=== PATIENT | male | born 1980 | race Caucasian/White ===

== ENCOUNTER → 2016-12-14 | Outpatient (CLI) | payer OTHER ==
[~2016-12-14] MED LIST: HYDR-5688 PO; LISI-787 PO
--- NOTE | 2016-12-15 04:51 | SPLIT NIGHT TECHNICIAN REPORT ---
[facility] Split Night Polysomnogram - [employer] Report Study date: 12/14/2016 Referring Physician: Meghan ELY M.D. Name: MADELIN OCTAVIANO BAUTISTA [employer]: VELASQUEZ Pastrana. Date of : 1980 Height: 36 years, Height 5' 10" Sex: Male Weight: 351 lbs Age: 36 Neck Circum: 19 inches BMI: Medications: 50.36 LEXAPRO 10 MG, LISNIPRIL-HYDROCHLOROTHIAZIDE 20-12.5 MG Patient History PATIENT HAD A SLEEP STUDY DONE IN 2012 AND WAS POSITIVE FOR SUHAS WITH AN AHI 5.3/HR. HE WORE CPAP FOR 18 MONTHS BUT THEN QUIT. HE IS HERE TODAY FOR AN EVALUATION OF SUHAS. ESS = 8 RM 8 Parameters Monitored NPSG: E1-M2, E2-M1, Fp1-M2, Fp2-M1, F3-M2, F4-M2, F4-M1, C3-M2, C4-M2, C4-M1, O1-M2, O2-M2, O2-M1, T3-M2, T4-M1, P3-M2, P4-M1, CHIN1, CHIN2, HR, EKG, Legs, PFLOW, SNOR, FLOW, CFLOW, Tidal Volume, THOR, ABDO, SpO2, PLTH, CPRESS, ETCO2 Wave, ETCO2, pH SLEEP SUMMARY DATA DIAGNOSTIC TREATMENT Lights Out: 9:56:05 PM 12:42:35 AM Lights On: 12:33:35 AM 4:41:35 AM Total Recording Time (TRT): 158.0 min. 239.0 min. Total Sleep Time (TST): 127.0 min. 193.0 min. NREM Time: 106.5 min. 152.0 min. REM Time: 20.5 min. 41.0 min. Sleep Period Time (SPT): 142.0 min. 204.0 min. Sleep Efficiency (SE): 81 % 81 % Sleep Latency: 15.5 min. 27.0 min. Arousal Index: 11.8 2.5 PAP Treatment Levels: 4, 8, 9 * Optimal Pressure(s) SLEEP STAGING DATA DIAGNOSTIC TREATMENT Duration (min) TST % Duration (min) TST % Stage Wake: 30.5 min. -- 46.0 min. -- WASO: 15.0 min. -- 11.0 min. -- NREM: 106.5 min. 84 % 152.0 min. 79 % Stage N1: 18.0 min. 14 % 5.5 min. 3 % Stage N2: 58.5 min. 46 % 63.5 min. 33 % Stage N3: 30.0 min. 24 % 83.0 min. 43 % REM: 20.5 min. 16 % 41.0 min. 21 % POSITIONAL DATA Event Count Index Event Count Index Supine: 1 19.9 2 1.4 Supine NREM: 1 19.9 0 0.0 Supine REM: N/A N/A 2 3 Non-Supine: 55 26.6 0 0.0 Non-Supine NREM: 24 13.9 0 0.0 Non-Supine REM: 31 90.7 N/A N/A AROUSAL SUMMARY DATA: Event Count Index Event Count Index Apnea Arousals: 1 0.9 0 0.0 Hypopnea Arousals: 4 1.9 0 0.0 Snore Arousals: 4 1.9 0 0.0 PLM Arousals: 1 0.5 2 0.6 Non-Specific Arousals: 16 7.6 4 1.2 Total Arousals: 25 11.8 8 2.5 MYOCLONUS (PLM) Event Count Index Event Count Index PLM: 18 8.5 5 1.6 PLM AROUSAL: 1 0.5 2 0.6 PLM W/O AROUSAL 18 8.5 3 0.9 PLM W/RESP EVENT 1 0.0 0 0.0 MYOCLONUS (PLM) Event Count Index Event Count Index LM: 2 10.9 15 4.7 LM AROUSAL: 2 0.9 2 0.6 LM W/O AROUSAL LM W/RESP EVENT LM NON SPECIFIC 35 16.5 16 5.0 HEART RATE DATA DIAGNOSTIC TREATMENT Sleep (bpm): 75 73 REM (bpm): 73 88 NREM (bpm): 88 89 Tachycardia Count: 0 0 Tachycardia Duration: 0.00 0 Bradycardia Count: 0 0 Bradycardia Duration: 0.00 0 DIAGNOSTIC PORTION TREATMENT PORTION RESPIRATORY DATA Event Count Index Event Count Index AHI: -- 26.5 -- 0.6 RDI: -- 26.5 -- 1 Obstructive Apnea: 1 0.5 0 0.0 Central Apnea: 1 0.5 0 0.0 Mixed Apnea: 0 0.0 0 0.0 Hypopnea: 54 25.5 2 0.6 RERA: 0 0.0 0 0.0 Total Apneas: 2 0.9 0 0.0 RESPIRATORY DATA REM NREM SLEEP REM NREM SLEEP Supine Position: Obstructive Apneas: N/A 0 0 0 0 0 Central Apneas: N/A 0 0 0 0 0 Mixed Apneas: N/A 0 0 0 0 0 Hypopneas: N/A 1 1 2 0 2 RERA N/A 0 0 0 0 0 Total Supine Events: N/A 1 1 2 0 2 Supine AHI: N/A 19.9 19.9 3 0.0 1.4 Supine RDI: N/A 19.9 19.9 2.9 0.0 1.4 REM NREM SLEEP REM NREM SLEEP Non-Supine Position: Obstructive Apneas: 1 0 1 N/A 0 0 Central Apneas: 0 1 1 N/A 0 0 Mixed Apneas: 0 0 0 N/A 0 0 Hypopneas: 30 23 53 N/A 0 0 RERA 0 0 0 N/A 0 0 Total Supine Events: 31 24 55 N/A 0 0 Supine AHI: 90.7 13.9 26.6 N/A 0.0 0.0 Supine RDI: 90.7 13.9 26.6 N/A 0.0 0.0 OXYGEN DESTAURATION DATA: Event Count Index Event Count Index REM Desaturations: 40 117.1 2 2.9 NREM Desaturations: 31 17.5 0 0.0 SNORE DATA DIAGNOSTIC TREATMENT Snore Time: 24.0 1:09:35 AM Snore TST%: 17 10 Snore Arousal Count: 4 0 Snore Arousal Index: 1.9 0.0 Desaturation Event Summary: Minimum %SpO2 Event Count Mean/Min/Max Duration(sec.) Desaturation Index % Time In Bed > 90 31 19.0 / 5.8 / 51.8 22.4 21.3 86 - 90 29 23.6 / 7.0 / 55.5 6.6 67.7 81 - 85 13 18.5 / 11.3 / 45.5 33.4 6.0 76 - 80 14 16.2 / 5.5 / 45.5 186.0 1.2 71 - 75 20 10.2 / 5.5 / 22.2 152.9 2.0 66 - 70 10 8.2 / 5.8 / 13.0 120.2 1.3 61 - 65 2 7.5 / 7.0 / 8.0 61.5 0.5 56 - 60 0 N/A 0.0 0.0 51 - 55 0 N/A 0.0 0.0 < 50 0 N/A 0.0 0.0 OXYGEN SATURATION DATA DIAGNOSTIC TREATMENT SpO2 Mean Sleep: 85 % 88 % SpO2 Mean REM: 73 % 88 % SpO2 Mean NREM: 88 % 89 % SpO2 Minimum Sleep: 60 % 83 % SpO2 Minimum REM: 60 % 84 % SpO2 Minimum NREM: 71 % 83 % Time Below 90% (TST): 109.8 139.7 Time Below 88% (TST): 77.9 50.5 Total REM NREM Awake <50% 0.0 min. 0.0 min. 0.0 min. 0.0 min. 51 - 60% 0.1 min. 0.1 min. 0.0 min. 0.0 min. 61 - 70% 6.9 min. 6.9 min. 0.0 min. 0.0 min. 71 - 80% 12.4 min. 11.2 min. 1.1 min. 0.0 min. 81 - 90% 287.5 min. 43.1 min. 224.6 min. 19.9 min. 91 - 100% 83.0 min. 0.1 min. 32.6 min. 50.3 min. Average 88 83 88 91 Minimum SpO2 60 60 71 83 Desaturation Event Index 13.9 41.0 7.2 14.9 # Desat. Events below 89% 83 42 30 11 Time(%) with Saturation below 89% 52.9 12.8 38.3 1.8 Time(min.) with Saturation below 89% 206.4 49.9 149.4 7.2 Recording [employer] Comments: Mr. Lacey slept in the right, left and supine positions. No cardiac arrhythmia noted. Leg movements noted. No bruxism noted. Snoring was noted and scored as a 4 on a scale of 1 through 5. (0=no snoring, 5=snoring loud enough to be heard through a closed door or down the hicks way) At 12:33 am, Mr. Lacey has met specific Split-Night criteria during the diagnostic portion of this study. CPAP was initiated at +4 CMH2O and up-titrated to an optimal level of +9CMH2O, which nearly eliminated all respiratory events and snoring. At 3:45 am I initiated supplemental oxygen at 1l/min due to the patient's oxygen level being at 88% or lower for at least 5 minutes at an optimal pressure. I increased supplemental oxygen to 2l/min at 4:25 am. A Fraz[employer] Eson nasal mask size medium was used during titration Mr. Lacey awoke to use the restroom 1 time during the night. Mr. Lacey stated I slept as well as I do when I am in my own bed. The final report will be interpreted and signed by a sleep physician. The completed physician report will then be placed in the patient medical record. Therapy Event: Therapy (cm H20) 0 4 8 9 Total Time at Pressure (min.) 157.5 11.6 45.1 182.2 TST at Pressure (min.) 127.0 0.0 21.8 171.2 # Periods 1 1 1 1 Sleep Onset (min.) 15.5 N/A 15.4 0.0 REM Onset (min.) 135.0 N/A N/A 36.2 Sleep Efficiency % 80 0 48 94 Wakefulness (%) 19.4 100.0 51.8 6.0 Wakefulness (min.) 30.5 11.6 23.4 11.0 NREM 1 (%) 11.4 0.0 5.5 1.6 NREM 1 (min.) 18.0 0.0 2.5 3.0 NREM 2 (%) 37.1 0.0 41.0 24.7 NREM 2 (min.) 58.5 0.0 18.5 45.0 NREM 3 (%) 19.0 0.0 1.7 45.1 NREM 3 (min.) 30.0 0.0 0.8 82.2 REM (%) 13.0 0.0 0.0 22.5 REM (min.) 20.5 0.0 0.0 41.0 # Arousals 25 N/A 2 6 Arousal Index 11.8 N/A 5.5 2.1 # Snore 974 N/A 90 591 Snore Index 460.2 N/A 248.2 207.1 AHI 26.5 N/A 0.0 0.7 AHI Supine 19.9 N/A N/A 1.4 AHI Non-Supine 26.6 N/A 0.0 0.0 NREM AHI 14.1 N/A 0.0 0.0 REM AHI 90.7 N/A N/A 2.9 RDI 26.5 N/A 0.0 0.7 # Obstructive 1 N/A 0 0 # Central Ap 1 N/A 0 0 # Mixed 0 N/A 0 0 # Hypopneas 54 N/A 0 2 RERAS 0 N/A 0 0 Total Respiratory Events 56 N/A 0 2 Time Below SpO2 89.00% (min.) 98.4 0.0 18.0 82.8 Mean NREM SpO2 (%) 88 N/A 88 89 Mean REM SpO2 (%) 73 N/A N/A 88 Mean Sleep SpO2 (%) 85 N/A 88 89 Min NREM SpO2 (%) 71 N/A 86 83 Min REM SpO2 (%) 60 N/A N/A 84 Position Supine (min.) 3.0 0.0 0.0 84.9 Position Non-supine (min.) 124.0 0.0 21.8 86.3 LM Index Sleep 19.4 N/A 5.5 6.3 LM Index NREM 20.3 N/A 5.5 5.1 LM Index REM 14.6 N/A N/A 10.2 Mean Heart Rate (bpm) 75 N/A 75 73 Min Heart Rate (bpm) 61 N/A 67 62
--- NOTE | 2016-12-26 13:38 | POLYSOMNOGRAPH REPORT ---
REFERRING PERSON: Dr. Valdez Cuello. DIABETES EDUCATION COORDINATOR: Jeison Chin. Mr. Lacey is a 36-year-old morbidly obese male with mood disorder who had a sleep study performed in 2012 which showed an AHI of 5.3. He used a CPAP machine for about 18 months and then quit using it. He returns to the sleep lab to see if sleep apnea is still present. His Champion sleepiness scale score on the evening of this study is 8. BMI is 50.36. Following the technical and digital specifications of the [employer] (AASM) a standard diagnostic polysomnogram was performed monitoring EEG, EOG, EMG (chin and leg deviations), oxygen saturation, body position, digital video, respiratory effort and airflow. The sleep Stage and event scoring was based on the AASM Manual for the Scoring of Sleep and Associated Events 2007 edition. Apneas are defined as a drop in the peak thermal sensor excursion by >90% of baseline for at least 10 seconds. Hypopneas were scored using the 4% oxygen desaturation rule (4A-[employer]) and a decrease in the nasal pressure excursions by >30% of baseline for at least 10 seconds. Respiratory effort-related arousal (RERA's) is defined as a sequence of breaths lasting at least 10 seconds characterized by increasing respiratory effort or flattening of the nasal pressure waveform leading to an arousal from sleep when the sequence of breaths does not meet criteria for an apnea or hypopnea. Apnea Hypopnea index (AHI) is defined as the number of apneas and hypopneas occurring in an hour of sleep. Respiratory disturbance index (RDI) is defined as the number of apneas, hypopneas, and RERA's occurring in an hour of sleep. Mr. Lacey did in fact qualify for a split night sleep study. He was observed for 127 minutes of sleep time. During that time he had 14% N1 sleep, 46% N2 sleep, 24% N3 sleep and 16% of REM sleep. There were 25 cortical arousals from sleep. 16 of these arousals were nonspecific, 1 was due to periodic limb movements of sleep and the remainder were due to respiratory events. There were 18 periodic limb movements during observation, 1 of which resulted in arousal. Mean saturation during sleep was low at 85% desaturations with a respiratory event during REM to 60%. There was 1 obstructive apnea, 1 central apnea and no mixed apnea during observation. There were 54 hypopnea. Apnea-hypopnea index was 26.5. Therefore, at 12:30 a.m., this patient was started on CPAP therapy. Over the remainder of the night, this patient was titrated from a CPAP pressure of 4 to a CPAP pressure of 9 using a Frazier and Paykel Eson nasal mask in a medium size. On a pressure of 9, the patient was observed for 171.2 minutes of sleep time. Forty-one of these minutes were spent in supine REM sleep. AHI and RDI on this pressure were both 0.7. However, nocturnal hypoxemia persisted despite adequate treatment of sleep disordered breathing. Therefore, at 3:45 a.m., this patient was started on supplemental oxygen at 1 liter. At 4:25 a.m. this was increased to 2 liters. He remained on 2 liters for the remainder of the night. IMPRESSION AND PLAN: Successful split night sleep study in this patient with significant nocturnal hypoxemia as well as sleep apnea. I would recommend that he be started on CPAP at a pressure of 9 at home with 2 liters of supplemental oxygen. An overnight oximetry on these settings should be performed to ensure his hypoxemia resolves with 2 liters of oxygen and that he does not require additional. A download from his machine should be reviewed in 1 month both to check compliance as well as AHI and further pressure adjustments can occur at that time.
== END | disposition home or self-care (01) ==
LOC: C.NEUR 20:00
PROVIDERS: ATTEND Family Medicine
DX: G47.33 Obstructive sleep apnea (adult) (pediatric) (principal); R09.02 Hypoxemia

== ENCOUNTER 2017-04-01 23:28 | Emergency (ER) | payer OTHER ==
[~2017-04-01 23:28] MED LIST changes: -HYDR-5688 PO
[2017-04-01 23:33] VITALS: TEMP 36.7
[2017-04-02] MEDS ORDERED: XYLOCAINE 1%/SOD BICARB 20 ML VIAL INFIL ONE
[2017-04-02] MEDS ORDERED: DIPHTHERIA/TETANUS/PERTUSSIS 0.5 ML SYR/VIAL IM. ONE (00:15)
--- NOTE | 2017-04-02 00:50 | EMERGENCY ROOM VISIT NOTE ---
ED Visit Note First contact with patient: 23:35 CHIEF COMPLAINT: Finger laceration HISTORY OF PRESENT ILLNESS: This 37 yo patient presents to the emergency department with after cutting the left thumb finger. The bleeding has not stopped. Denies weakness or numbness of the finger. The patient has full range of motion of the fingers. The patient rates the pain as mild and 2/10. The patient denies any other injuries. The patient's tetanus shot is not up to date. Patient cut his thumb putting down a tent. REVIEW OF SYSTEMS: A 6 system review of systems was completed with positives and pertinent negatives listed in the HPI. ALLERGIES: none MEDICATIONS: reviewed PMH:Medical Problems: (1) Hypertension Status: Chronic (2) Left rib fracture Status: Resolved (3) Morbid Obesity Status: Chronic (4) Multiple fractures of ribs with delayed healing Status: Resolved (5) Rib pain Status: Resolved SOCIAL HISTORY: no drug use PHYSICAL EXAM: Vital Signs: Reviewed Nurse's notes, vital signs stable. GENERAL : white male, in no acute distress, well developed, well nourished. SKIN: There is a 3 cm long laceration on the distal aspect of the left first finger. The edges gape apart with traction. There is no foreign material in the wound and it looks clean. There is bleeding. No deep structures such as tendons, bones, or significant blood vessels are seen in the base of the wound. Extension and flexion of the finger is full and strong. Full range of motion of the wrist and other fingers. Capillary refill less than 2 seconds. Normal sensation to light and sharp touch. EMERGENCY DEPARTMENT COURSE: I examined the patient. Using sterile technique the wound was cleansed with Betadine. 2 ml of 1% buffered lidocaine was used to perform a digital block to anesthetize the patient. The area was sterilely draped. Once the patient was anesthetized, the wound was copiously irrigated under pressure with sterile saline. The wound was explored and there were no deep structures injured. The laceration was repaired using 5 simple interrupted 5-0 nylon sutures. The patient tolerated the procedure well. Hemostasis was achieved. The area was cleaned with sterile saline and dressed with bacitracin ointment and bandage. The patient was given a tetanus booster. The patient was discharged home in good condition. Differential diagnosis includes superficial ulceration, deep laceration, complex laceration, vascular injury, nerve injury and other etiologies were considered. DIAGNOSIS: Finger laceration, left thumb DISCHARGE INSTRUCTIONS & TREATMENT: Keep wound clean and dry. Do not allow any crusting or dried blood to accumulate on sutures. If this occurs, use a 1:1 solution of hydrogen peroxide/water on a Q-tip to clean the wound. Use an antibiotic ointment for 3-4 days, then let wound dry. Suture removal in 10-12 days. Return sooner for any signs of infection (increasing redness, swelling, drainage). Ice and elevate for swelling and pain. Ibuprofen 600 mg and Tylenol 500 mg every 6 hrs for pain. Keep covered when in sun until sutures removed then SPF 50 or higher for one year. Vitamin E oil if desired two weeks after suture removal for reduction of scar. Problem List Medical Problems: (1) Hypertension Status: Chronic (2) Left rib fracture Status: Resolved (3) Morbid Obesity Status: Chronic (4) Multiple fractures of ribs with delayed healing Status: Resolved (5) Rib pain Status: Resolved Current/Historical Medications Scheduled Lisinopril/Hctz (Zestoretic 20MG/12.5MG), 1 TAB PO DAILY Allergies Coded Allergies: No Known Allergies (Unverified , NONE, 04/02/17) Vital Signs Date Time Temp Pulse Resp B/P (MAP) Pulse Ox O2 Delivery O2 Flow Rate FiO2 04/01/17 23:33 36.7 84 18 168/99 95 Room Air Departure Information Referrals Malcolm Lopez M.D. (PCP) Patient Instructions [facility]
[2017-04-02 01:03] VITALS: BP 142/88; PULSE 82; O2SAT 96
== END 2017-04-02 01:00 | disposition home or self-care (01) ==
LOC: C.EDB 23:29 → C.EDC 04-02 01:00
DX: S61.012A Laceration without foreign body of left thumb without damage to nail, initial encounter (principal); W45.8XXA Other foreign body or object entering through skin, initial encounter; Z23 Encounter for immunization; I10 Essential (primary) hypertension; Z86.73 Personal history of transient ischemic attack (TIA), and cerebral infarction without residual deficits; Z79.899 Other long term (current) drug therapy

== ENCOUNTER 2023-07-23 23:30 | Observation (INO) ==
--- OUTSIDE RECORDS SUMMARY | 2023-07-23 23:34 | External Medical Summary | Summary of Care ---
Author Name Unknown Organization [facility] Address [address] [place] [address] Phone [phone] Care Team Providers Care [employer] Name Role Phone Luias STEWART MD, Lee Colón Primary Care Provider [phone] Reason for Visit * Reason Comments Toothache * Auth/Cert Specialty Diagnoses / Procedures Referred By Juan J husain Referred To Contact Referral ID Status Reason Start Date Expiration Date Visits Re quested Visits Authorized [id number] Encounter Details Date Type Department Care Team Description 05/24/2023 Emergency [facility] ([facility]) [address] [place] [address] Dental infection (Primary Dx); Hypertension, unspecified type Allergies No known active allergiesdocumented as of this encounter (statuses as of 05/25/2023) Medications Medication Sig Dispensed Refills Start Date End Date Status Lisinopril-hydroCH LOROthiazide 20-12.5 MG Oral TabletIndications: Essential hypertension with goal blood pressure less than 140/90 Take by mouth 1 Tablet in the morning. 90 Tablet 1 11/18/2021 Active ProAir HFA 108 (90 Base) MCG/ACT Inhalation Aerosol Solution Inhale by mouth 2 Puffs 4 times a day . 18 g 1 11/18/2021 Active Amoxicillin 500 MG Oral Capsule (Amoxil) Take 1 Capsule by mouth in the morning and 1 Capsule at noon and 1 Capsule before bedtime. Do all this for 7 days. 21 Capsule 0 05/24/2023 05/31/2023 Active amLODIPine Besylate 5 MG Oral Tablet (Norvasc) Take 2 Tablets by mouth in the morning. 30 Tablet 5 05/24/2023 Active oxyCODONE-Acetamin ophen 5-325 MG Oral Tablet (Percocet) Take 1 Tablet by mouth every 4 hours as needed for Pain, Severe. 6 Tablet 0 05/24/2023 Active amLODIPine Besylate 5 MG Oral Tablet (Norvasc) Take by mouth 1 Tablet in the morning. 30 Tablet 5 11/18/2021 05/24/2023 Discontinued (Refill) documented as of this encounter (statuses as of 05/25/2023) Active Problems Problem Noted Date Major depressive disorder, single episod e, mild 04/18/2018 Adult BMI 50.0-59.9 kg/sq m 01/21/2016 Overview: bmi= 50.51 01/21/16 History of rib fracture 01/21/2016 Hyperinsulinemia 01/21/2016 Tobacco use disorder 12/21/2015 Alcohol dependence in remission 10/08/19 14 TERMINATED MEDICATION USAGE AGREEMENT HYPOXEMIA - nocturnal 08/13/2010 Obstructive sleep apnea of adult 010 PHOTOALLERGIC RESPONSE 03/05/2007 HTN, goal below 140/90 documented as of this encounter (statuses as of 05/25/2023) Resolved Problems Problem Noted Date Resolved Date Controlled substance agreement signed 12/21/2015 12/21/2015 Adult body mass index 50.0-59.9 05/14/2010 05/11/2017 Overview: Per Obesity protocol #1 Obesity, morbid (more than 1 00 lbs over ideal weight or BMI > 40) 04/05/2010 05/14/2010 Overview: ICD-10 update of inactive term Chronic sinusitis 09/14/2004 12/21/2015 ACUTE URI NOS 09/14/2004 09/25/2008 Overview: Resolved per Benign Acute Dxs Protocol #3 DYSFUNCT EUSTACHIAN TUBE 09/14/2004 016 Chronic rhinitis 09/14/2004 12/21/2015 Tobacco use disorder 09/14/2004 12/21/2015 Cough 09/14/2004 12/21/2015 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/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 OBESITY, UNSPECIFIED 09/14/2004 12/21/2015 documented as of this encounter (statuses as of 05/25/2023) Immunizations Name Administration Dates Next Due Pneumococcal Polysaccharide PPV23 (Pneumovax) SEASONAL INFLUENZA, PF, 6 M & Above, IM , (FLULAVAL or FLUZONE) 06/17/2020 Seasonal Influenza, Quadrivalent, No Preserve, I M 04/22/2016 Seasonal Influenza, Split, IIV3, With Preserve, Inj 06/11/2010 TD, Preservative Free 07/30/2020 TDAP (age 11 and older)(Adacel) 03/05/2009 documented as of this encounter Social History Tobacco Use Types Packs/Day Years Used Date Smoking Tobacco: Every Day Cigarettes 1 22 Smokeless Tobacco: Never Alcohol Use Standard Drinks/Week Comments No 0 (1 standard drink = 0.6 oz pur e alcohol) Sex Assigned at Date Recorded Not on file Job Start Date Occupation Industry Not on file Not on file Not on file documented as of this encounter Last Filed Vital Signs Vital Sign Reading Time Taken Comments Blood Pressure 250/146 05/24/2023 10:10 PM EDT Pulse 90 05/24/2023 10:10 PM EDT Temperature 37.2 C (99 F) 05/24/2023 8:51 PM EDT Respiratory Rate 23 05/24/2023 10:1 0 PM EDT Oxygen Saturation 96% 05/24/2023 10: 10 PM EDT Inhaled Oxygen Concentration - - Weight 166.9 kg (367 lb 14.4 oz) 05/24/2023 8:51 PM EDT Height - - Body Mass Index 52.97 08/26/2020 9:01 AM EST documented in this encounter Discharge Instructions * Discharge Instructions* Jaden Lees PA-C - 05/24/2023 10:10 PM EDT Increase your amlodipine to 10mg daily. Take the antibiotic as prescribed for the full course. Continue taking pmif-pql-fijdrmt medicationsin scheduled manner, oxycodone may be used for pain not controlled with qsop-kxu-ojpwxjl medications. Follow up with your dentist. Report back to the ED with fevers, increased facial swelling, trouble swallowing, or any new concerns. documented in this encounter ED Notes * Meagan Zepeda, DO - 05/24/2023 10:32 PM EDT HISTORY OF PRESENT ILLNESS Haroon Lacey is a 43 year old male who presents to the ED for evaluation of Toothache. The patient was seen at 05/24/232153. Patient presents today with complaints of dental pain that has been ongoing. Reports it has gotten worse recently, he was seen by a dentist recently and was informed that he should have all of his lower teeth removed, the dentist informed him that they appeared infected, but reports they did not start him on any antibiotics. They were requesting 5000 dollars to have his teeth removed which she does not have. Minimal amount of facial swelling on the right side, but no trouble swallowing, no tongue swelling or swelling under the tongue, no fevers or chills. Noted to be significantly hypertensive, reports he does take some medications progress described byhis doctor, he is currently taking them, he is not followed up to have any dosage changes. Denying CP, SOB, headache, dizziness, lightheadedness, numbness or weakness Toothache The patient's allergies, past history, and medications were reviewed. PHYSICAL EXAM Initial Vitals (see all): BP 258/150 | Pulse 103 | Resp 22 | Temp 99 | O2 95 %, Room Air, None | Weight 166.88 kg | Height 177.5 cm | Initial Pain Assessment (see all): 8 (severe pain)/10, location: lower jaw pain ([facility] Adult Scale 0-10) Physical Exam Vitals and nursing note reviewed. Constitutional: Appearance: Normal appearance. He is not ill-appearing. HENT: Head: Normocephalic and atraumatic. Mouth/Throat: Mouth: Mucous membranes are moist. Pharynx: Oropharynx is clear. Comments: Poor dentition throughout the mouth, multiple teeth in the lower jaw tender. Cardiovascular: Rate and Rhythm: Normal rate and regular rhythm. Heart sounds: Normal heart sounds. Pulmonary: Effort: Pulmonary effort is normal. Breath sounds: Normal breath sounds. Neurological: General: No focal deficit present. Mental Status: He is alert and oriented to person, place, and time. Sensory: No sensory deficit. Motor: No weakness. PROCEDURES AND TREATMENTS ED Orders | ED Results MEDICAL DECISION MAKING Nursing notes and vital signs were reviewed. Differential Diagnoses Based on my history, physical exam, and evaluation, the differential includes, but is not limited, to the following diagnoses: Dental infection, small dental abscess, dental pain, poor dentition, uncontrolled hypertension, asymptomatic hypertension. 43-year-old male with poor dentition, multiple areas of tenderness in the mouth, no abscess that would be drainable was noted. Minimal swelling noted to both sides of his lower jaw. His dentist told him that they were infected, but he has not been started on any antibiotics. No evidence of deep space infection of the face or neck. Will start him on antibiotics, and given ashort course of oxycodone for pain. Patient is significantly hypertensive but asymptomatic at this time. Previous office visit he was around 200 systolic. He has been taking his prescribed medications, but has not followed up for increased dosing. Will give him an extra dose of his amlodipine and have him start taking 10 mg instead of 5. I educated him on the dangers of uncontrolled hypertension of the need for follow-up. He voiced understanding, and was discharged. Risk Prescription drug management. Clinical Impressions Dental infection Hypertension, unspecified type Disposition Discharged. The patient's condition at disposition was: stable. Discharge Medications Disp Refills Start End Amoxicillin 500 MG Oral Capsule (Amoxil) 21 Capsule 0 05/24/2023 05/31/2023 Sig - Route: Take 1 Capsule by mouth in the morning and 1 Capsule at noon and 1 Capsule before bedtime. Do all this for 7 days. - Oral Class: ePrescribing Renewals Renewal requests to authorizing provider (Jaden Lees PA-C) <b>prohibited</b> amLODIPine Besylate 5 MG Oral Tablet (Norvasc) 30 Tablet 5 05/24/2023 Sig - Route: Take 2 Tablets by mouth in the morning. - Oral Class: ePrescribing Renewals Renewal requests to authorizing provider (Jaden Lees PA-C) <b>prohibited</b> oxyCODONE-Acetaminophen 5-325 MG Oral Tablet (Percocet) 6 Tablet 0 05/24/2023 Sig - Route: Take 1 Tablet by mouth every 4 hours as needed for Pain, Severe. - Oral Class: Site Administration Earliest Fill Date: 05/24/2023 Renewals Renewal requests to authorizing provider (Jaden Lees PA-C) <b>prohibited</b> I have personally dispensed to go medications to the patient for home use. These to go mediations are listed above with a class of site administration. These medications were labeled with the patient's name and instructions for use. MEAGAN ZEPEDA was the attending physician who supervised the care of this patient. Jaden Lees PA-C ATTENDING ATTESTATION I was readily available and reviewed care of this patient. I was available for immediate iunm-wt-[id number] consultation and assistance. I have reviewed the care of the patient with the provider listed above. Meagan Zepeda DO * Yancy Peterson RN - 05/24/2023 8:50 PM EDT Reports he was at the oral surgeon yesterday and told he had a bad infection but they would not pull his teeth without 5000 dollar down payment. Reports his whole bottom jaw hurts. documented in this encounter Miscellaneous Notes * ED Energy Auditor Note - Wild Johnson RN - 05/24/2023 10:20 PM EDT Reviewed pts dc instructions with him at the bedside. Zee BUTLER did provide pt with TO GO percocet - 6 tablets. Discussed new orders for abx sent to the pharm for pickup. Pt did verbalize understanding to all topics covered prior to dc. * Pt Handout (on AVS) - Jaden Lees PA-C - 05/24/2023 10:04 PM EDT [address] Discharge Instructions for High Blood Pressure (Hypertension) You have been diagnosed with high blood pressure. This is known as hypertension. This means the force of blood against your artery nieto is too strong. It means your heart is working hard to move blood. High blood pressure usually has no symptoms. But over time, it can cause serious health problems. High blood pressure raises your risk for these problems: Heart attack Stroke Heart disease Heart failure Kidney disease Vision loss With help from your healthcare provider, you can manage your blood pressure and protect your health. Blood pressure measurements are given as 2 numbers. Systolic blood pressure is the upper number. This is the pressure when the heart contracts or pumps. Diastolic blood pressure is the lower number. This is the pressure when the heart relaxes between beats. Blood pressure is grouped like this: Normal blood pressure. This is systolic of less than 120 and diastolic of less than 80 (120/80) at rest Elevated blood pressure. This is systolic of 120 to 129 and diastolic less than 80 at rest Stage 1 high blood pressure. This is systolic is 130 to 139 or diastolic between 80 to 89 at rest Stage 2 high blood pressure. This is when systolic is 140 or higher or the diastolic is 90 or higher at rest Taking medicine Learn to measure your own blood pressure. Keep a record of your results. Ask your healthcare provider what numbers mean that you need medical care. Take your blood pressure medicine exactly as directed. Don?t skip doses. Missing doses can causeyour blood pressure to get out of control. Ask your healthcare provider what to do if you miss a dose. Don't take medicines that contain heart stimulants. This includes mpoz-yzl-gwyrbmn medicines. Check for warnings about high blood pressure on the label. Ask the pharmacist before buying a medicineyou haven't used before. Check with your healthcare provider before taking a decongestant. This includes medicines with pseudoephedrine or phenylephrine on the label. Ask the pharmacist if you are not sure. These can makehigh blood pressure worse. If you take medicine to have sex, talk to your healthcare provider. Taking these medicines with a type of blood pressure medicine called nitrates can be dangerous. This can drop your blood pressure too low. Lifestyle changes Keep a healthy weight. Get help to lose any extra pounds. Meeting with a dietitian can help you make diet changes to help with weight loss. Cut back on salt. To do this: o Limit canned, dried, packaged, and fast foods. o Don?t add salt to your food at the table. o Season foods with herbs instead of salt when you cook. o Ask for no added salt when you eat out. o Have no more than 1,500 mg a day of sodium. You can make a positive change by cutting back to even 2,300 mg of sodium a day. Read all food labels to see how much sodium they have. Follow the DASH eating plan. DASH stands for Dietary Approaches to Stop Hypertension. This plan advises a way to eat for healthy blood pressure. The diet includes vegetables, fruits, whole grains,and other healthy foods. Eat food rich in potassium. Begin an exercise program. Talk with your healthcare provider before you get started. Work up toaerobic exercise 3 to 4 times a week for an average of 40 minutes at a time to lower blood pressure. Even simple activities can help blood pressure. These include walking or gardening. If you smoke, work to stop. Enroll in a stop-smoking program. This will improve your chance of success. Ask your healthcare provider about programs and medicines to help you stop smoking. Limit drinks with caffeine to 2 per day. This includes such as coffee, black or green tea, and cola. Never take stimulants such as amphetamines or cocaine. These drugs can be deadly for a person with high blood pressure. Work to lessen your stress. You can learn ways to manage stress. Limit how much alcohol you drink. This means no more than 1 drink a day for women and 2 drinks aday for men. Follow-up care Make a follow-up appointment as directed. When to call your healthcare provider Call your healthcare provider right away if you have any of these: Moderate headache Extreme drowsiness Dizziness or fainting Pulsating or rushing sound in your ears Unexplained nosebleed Blood pressure measured at home that is higher than 180/110 or as directed by your healthcare provider Call 911 Call 911 right away if you have any of these symptoms: Chest pain or shortness of breath Severe headache Weakness, tingling, or numbness of your face, arms, or legs (especially on 1 side of the body) Change in vision Confusion, trouble speaking, or trouble understanding speech Last Reviewed Date: 06/07/202119999786-7565 [employer]. All rights reserved. This information is not intended as a substitute for professional medical care. Always follow your healthcare professional's instructions. * Pt Handout (on AVS) - Jaden Lees PA-C - 05/24/2023 10:04 PM EDT Images from the original note were not included. [id number] Dental Abscess An abscess is a sac of fluid (pus). A dental abscess forms when a tooth or the tissue around it becomes infected with bacteria. The bacteria can enter through a cavity or a crack in a tooth. It can also infect the gum tissue or bone around a tooth. An untreated abscess can cause the loss of the tooth. It can even spread to other parts of the body and become life-threatening. Symptoms of a dental abscess Symptoms include: Toothache, often severe Tooth pain with hot, cold, or pressure Red gums Pain in the gums, cheek, or jaw Bad breath or bitter taste in the mouth Trouble swallowing or opening the mouth Fever Swollen or enlarged neck glands Diagnosing a dental abscess The dentist will ask about your symptoms and check your teeth and gums. You will be told if you need any tests, such as dental X-rays. Treating a dental abscess Treatments for a dental abscess may include: Antibiotic medicines. These treat the underlying infection. Pain relievers. These help you feel more comfortable. Your healthcare provider may prescribe a medicine for you. Or you may use juqq-hsd-jsmpjgd pain relievers, such as acetaminophen or ibuprofen,unless another pain medicine was prescribed. Talk with your healthcare provider before using these medicines if you have chronic liver or kidney disease. Also talk with your provider if you?ve had a stomach ulcer or gastrointestinal (GI) bleeding. Warm saltwater rinses. These can soothe mild pain and help clear away pus. Root canal surgery. This may be done if needed to save the tooth. With a root canal, the infected part of the tooth is removed. A special substance is then used to fill the empty space in the tooth. Draining the abscess. This may be done if needed. Cuts (incisions) are made to let the infected material drain from the tooth. Removing the tooth. This is done in cases of severe infection that can?t be treated another way. You may need to be admitted to a hospital if the infection is severe, has spread, or doesn?t respond to treatment. When to get medical advice Call your dentist or healthcare provider right away if you have any of the following: Fever of 100.4F ( 38C) or higher, or as directed by your healthcare provider More pain, redness, drainage, or swelling in the treated area Face or jawbone swelling Pain that can't be controlled with medicines Pus drains from the tooth Call 911 Call 911 if any of these occur: Unusual drowsiness or confusion Weakness or fainting Headache or stiff neck Trouble swallowing, breathing, or opening your mouth Swollen eyelids or vision problems Preventing dental abscess To prevent another abscess in the future, keep your teeth clean and healthy. [place] twice a day and floss at least once daily. See your dentist for regular exams and tooth cleanings. Avoid excessive sugary foods and drinks that can lead to tooth decay. If your teeth experience any trauma, see your dentist as soon as possible. Last Reviewed Date: 02/04/202219993963-5326 [employer]. All rights reserved. This information is not intended as a substitute for professional medical care. Always follow your healthcare professional's instructions. documented in this encounter Plan of Treatment Health Maintenance Due Date Last Done Comments Hepatitis B (1 of 3 - 3-dose series) 1980 COVID-19 Vaccine (#1) 1980 Pneumococcal Vaccine: Pediatrics (0 to 5 Years) and At-Risk Patients (6 to 64 Years) (2 - PCV) 04/05/2011 04/05/2010 Depression Screening 08/26/2018 08/26/2017, 01/21/20 16 *BASELINE EKG FOR HTN 08/16/2021 GFR 08/19/2021 08/19/2020, 07/07, 05/25/2016, Additional history exists Influenza Vaccine (FLU shot) (#1) 2023 06/17/2020, 04/22/2016, 06/11/2010 Albumin/Creatinine Ratio 07/30/2023 07/30/2020 Diabetes Screening 08/19/2023 08/19/2020, 1 09/20/2019, 05/25/2016, Additional history exists Lipid Panel 07/20/2025 07/20/2020, 05/07, 10/07/2013 DTaP,Tdap,and Td Vaccines (3 - Td or Tdap) 07/30/2030 07/30/2020, 03/05/2009 Hepatitis C Screening Completed 10/07/2013 GARDASIL-HPV IMMUNIZATION SERIES Aged Out No longer eligible based on patient's age to complete this topic MENINGOCOCCAL (MENACTRA/MENVEO) Aged Out No longer eligible based on patient's age to complete this topic documented as of this encounter Medical Devices Not on filedocumented as of this encounter Visit Diagnoses Diagnosis Dental infection- Primary Acute apical periodontitis of pulpal origin Hypertension, unspecified type documented in this encounter Administered Medications Inactive Administered Medications - up to 3 most recent administrations Medication Order MAR Action Action Date Dose Rate Site amLODIPine (Norvasc) tab 5 mg 5 mg, Oral, ONCE, On Mon05/24/23 at 2245, For 1 dose Given 05/24/2023 10:45 PM EDT 5 mg Amoxicillin (Amoxil) cap 500 mg 500 mg, Oral, ONCE, On Mon05/24/23 at 2245, For 1 dose Given 05/24/2023 10:45 PM EDT 500 mg oxyCODONE (Oxy IR) tab 5 mg 5 mg, Oral, ONCE, On Mon05/24/23 at 2245, For 1 dose Given 05/24/2023 10:45 PM EDT 5 mg documented in this encounter Active and Recently Administered Medications Times are shown in EDT. Scheduled Medication Order 05/22/2023 05/23/2023 05/24/2023 amLODIPine (Norvasc) tab 5 mg (COMPLETED) 5 mg, Oral, ONCE, On Mon05/24/23 at 2245, For 1 dose 2245 (Given - Provid er: Wild Johnson RN) Amoxicillin (Amoxil) cap 500 mg (COMPLETED) 500 mg, Oral, ONCE, On Mon05/24/23 at 2245, For 1 dose 2245 (Given - Provid er: Wild Johnson RN) oxyCODONE (Oxy IR) tab 5 mg (COMPLETED) 5 mg, Oral, ONCE, On Mon05/24/23 at 2245, For 1 dose 2245 (Given - Provid er: Wild Johnson RN) documented in this encounter Care Teams [employer] Relationship Specialty Start Date End Date Lee Moran III, MD [address] [place] [address] PCP - General Family Medicine 06/17/20 documented as of this encounter"
[2023-07-23] MEDS ORDERED: amLODIPine BESYLATE 5 MG TAB PO ONE (23:55)
--- NOTE | 2023-07-23 23:59 | Emergency Department Note ---
Impression & Plan Hypertension, Bilateral lower extremity edema, Elevated brain natriuretic peptide (BNP) level ED Provider Note ED Provider Note NAME: OCTAVIANO YUSUF AGE:43 SEX: Male : 1980 ARRIVES VIA: Private vehicle INFORMANT: Patient ED PROVIDER(s): Radha Jeronimo DO CHIEF COMPLAINT: High blood pressure, leg swelling, ran out of medication HPI: This is a 43-year-old male presents emergency department due to concern for elevated blood pressure and lower extremity edema. Patient states he ran out of his routine blood pressure medications on . He states he has been on blood pressure medication for several years. He was on lisinopril/HCTZ until May when he was changed to 10 mg of amlodipine daily. He states has been well-controlled on this since. He states he ran out of his medication on and was not going to be able to restart it until Monday again. He states he did have some slight increased fatigue over the weekend although no other overt chest pain, difficulty breathing, headaches, dizziness, vision changes, change in bowel or bladder function. He states yesterday they began noticing increased lower extremity edema which got worse today. Due to concern for the edema as well as elevated blood pressure readings he presented to the emergency room. PAST MEDICAL HISTORY:See Below PAST SURGICAL HISTORY:See Below FAMILY HISTORY:See Below SOCIAL HISTORY:See Below HOME MEDICATIONS:See Below ALLERGIES:See Below VITALS:See Below PHYSICAL EXAMINATION: GENERAL: alert, well appearing, well nourished, no distress, non-toxic EYE EXAM: normal conjunctiva, PERRL and EOM's grossly intact OROPHARYNX: no exudate, no erythema, lips, buccal mucosa, and tongue normal and mucous membranes are moist NECK: supple, no nuchal rigidity, no adenopathy, non-tender LUNGS: Clear to auscultation. Normal chest wall mechanics, no w/r/r HEART: no murmurs, S1 normal and S2 normal ABDOMEN: abdomen soft, non-tender, normo-active bowel sounds, no masses, no rebound or guarding. BACK: Back is symmetrical on inspection and there is no deformity, no midline tenderness, no CVA tenderness. SKIN: no rashes, petechiae, orbruising UPPER EXTREMITIES: upper extremities are grossly normal. FROM, nml pulses b/l. LOWER EXTREMITIES: 2+ b/l pitting edema. FROM, nml pulses b/l. NEURO EXAM: Normal sensorium, cranial nerves II-XII grossly intact, normal speech, no facial droop,nogross weakness of arms, no gross weakness of legs. Gross sensation intact. No ataxia. Vital Signs: reviewed and remarkable Differential Diagnosis: Hypertensive Urgency/Emergency, ACS, CHF, RUSH, nephrotic syndrome, noncompliance, medication ADR, ICH, CVA, dietary indiscretion, as well as others were considered MEDICAL DECISION MAKING: This is a 43-year-old male presents emergency department due to concern for lower extremity edema and hypertension after running out of his medication on . Patient reports mild fatigue however no other focal or specific symptoms. He was afebrile and noted to be significantly hypertensive on arrival here. Labs drawn and sent, IV established, EKG and chest x-ray performed bedside interpreted by me and patient monitored on telemetry. He was given his usual dose of amlodipine at home with mild improvement. After noting his lab work including a mildly elevated BNP along with his lower extremity edema he was given a dose of IV Lasix here. Patient did urinate several times, however blood pressure remained elevated. Patient continued to deny any new or evolving symptoms. Due to persistent elevated blood pressure readings we discussed additional inpatient evaluation and management and patient was in agreement. Case discussed with the hospitalist team for additional evaluation. At this time I do not suspect hypertensive emergency, dissection, ICH, CVA, ACS. No acute EKG changes compared to prior and troponin negative. Patient denied any shortness of breath, had no increased work of breathing, and was not hypoxic. His presentation is not strongly suggestive of acute CHF. Patient's lower extremity edema may be secondary to his use of amlodipine, however I am concerned about evolving CHF given the significantly elevated blood pressure. Consultation(s): 0325: Discussed with Dr. Abdullahi, [facility] hospitalist, for additional evaluation and management. ER Treatment Provided: See below Diagnostics Interpreted By Me: -ECG: Normal sinus at 81, normal axis, normal intervals, T wave inversions noted in 1 and aVL, no other acute ST/T wave changes; no significant change compared to October 31, 2021 -Cardiac Monitoring: An order was placed for continuous cardiac monitoring. The monitor shows a rate of 78 with normal sinus rhythm. -Laboratory studies: As stated above and show below. -Imaging studies: X-ray Chest: A single view study of the chest was reviewed and was negative for cardiomegaly, focal infiltrate, effusion, pulmonary edema, or wide mediastinum. Triage Nursing Note Reviewed Prior/Outside Records Reviewed Past Med/Surg History Medical History Asthma Left rib fracture Social History Smoking Status: Current every day smoker Tobacco Type: Cigarettes Preferred Language: French Feels Safe at Home: Yes Allergies Allergies Allergy/AdvReac Type Severity Reaction Status Date / Time No Known Allergies Allergy NONE Unverified 07/24/23 01:41 Home Meds Home Medications Medication Instructions Recorded Confirmed acetaminophen 500 mg tablet 1,000 mg PO Q6H PRN Pain 07/24/23 07/24/23 (Tylenol Extra Strength) amlodipine 5 mg tablet 10 mg PO QAM 07/24/23 07/24/23 Results & Data (ED) Vital Signs Vital Signs - 24 hr 07/23/23 23:34 07/24/23 00:17 07/24/23 00:38 Temperature 36.5 C Temperature Source Oral Pulse Rate 87 79 Pulse Rate [Right Finger] 79 Respiratory Rate 22 15 Respiratory Effort / Characteristics Non-Labored Spontaneous Respiratory Depth Normal Blood Pressure 254/149 H Blood Pressure [Right Arm] 220/153 H Blood Pressure Mean 184 Blood Pressure Mean [Right Arm] 175 Pulse Oximetry 91 94 Oxygen Delivery Method Room Air Room Air Sepsis New/Unexplained Change in Mental Status N/A Sepsis Action Taken by Nursing No Action Required 07/24/23 01:30 07/24/23 01:30 07/24/23 03:09 Temperature Temperature Source Pulse Rate 81 Pulse Rate [Right Finger] 72 78 Respiratory Rate 15 17 Respiratory Effort / Characteristics Respiratory Depth Blood Pressure 228/165 H Blood Pressure [Right Arm] 197/158 H 219/156 H Blood Pressure Mean Blood Pressure Mean [Right Arm] 171 177 Pulse Oximetry 95 95 Oxygen Delivery Method Room Air Room Air Sepsis New/Unexplained Change in Mental Status Sepsis Action Taken by Nursing 07/24/23 03:10 07/24/23 03:25 07/24/23 04:07 Temperature Temperature Source Pulse Rate 78 Pulse Rate [Right Finger] 74 80 Respiratory Rate 17 17 Respiratory Effort / Characteristics Respiratory Depth Blood Pressure 226/154 H Blood Pressure [Right Arm] 228/165 H 253/166 H Blood Pressure Mean Blood Pressure Mean [Right Arm] 186 195 Pulse Oximetry 94 93 Oxygen Delivery Method Room Air Room Air Sepsis New/Unexplained Change in Mental Status Sepsis Action Taken by Nursing Laboratory Data 07/24/23 00:20 07/24/23 00:20 Lab Results 07/24/23 Range/Units 00:20 WBC 8.87 (4.8-10.8) K/ul RBC 4.70 (4.70-6.10) M/uL Hgb 13.1 L (14.0-18.0) g/dl Hct 41.6 L (42.0-52.0) % MCV 88.5 (80.0-100.0) fL MCH 27.9 (25.0-34.0) pg MCHC 31.5 L (32.0-36.0) g/dL RDW Std Deviation 53.5 H (36.4-46.3) fL RDW Coeff of Tran 16.7 H (11.5-14.5) % Plt Count 256 (130-400) K/uL MPV 11.3 (9.4-12.4) fL Immature Gran % (Auto) 0.3 % Neut % (Auto) 74.5 % Lymph % (Auto) 15.3 % [place] % (Auto) 6.5 % Eos % (Auto) 2.8 % Baso % (Auto) 0.6 % Neut # (Auto) 6.60 H (1.40-6.50) K/uL Lymph # (Auto) 1.36 (1.20-3.40) K/uL [place] # (Auto) 0.58 (0.11-0.59) K/uL Eos # (Auto) 0.25 (0.00-0.50) K/uL Baso # (Auto) 0.05 (0.00-0.20) K/uL Immature Gran # (Auto) 0.03 (0.01-0.20) K/uL PT 10.6 (9.0-12.0) Seconds INR 1.0 (0.9-1.1) Sodium 139 (136-145) mmol/L Potassium 4.0 (3.5-5.1) mmol/L Chloride 104 (98-107) mmol/L Carbon Dioxide 31 (21-32) mmol/L Anion Gap 4 (3-11) BUN 13 (6-23) mg/dl Creatinine 0.90 (0.6-1.4) mg/dl Est Cr Clr Drug Dosing 164.8 ml/min Est GFR ( Amer) 120.8 ml/min Est GFR (Non-Af Amer) 104.2 ml/min BUN/Creatinine Ratio 14.4 (10-20) Glucose 122 H (70-99(Fasting)) mg/dl Calcium 8.2 L (8.6-10.3) mg/dl Magnesium 1.9 (1.7-2.4) mg/dl Total Bilirubin 0.3 (0.2-1.0) mg/dl AST 15 (13-39) U/L ALT 13 (7-52) U/L Alkaline Phosphatase 62 (34-104) U/L Troponin I High Sens 15.2 (0-20) pg/ml B-Natriuretic Peptide 286 H (0-100) pg/ml Total Protein 6.3 (6.0-8.3) gm/dl Albumin 3.6 (3.4-5.0) gm/dl Globulin 2.7 (2.5-4.0) gm/dl Albumin/Globulin Ratio 1.3 (0.9-2) Lipase 16 (11-82) U/L TSH 3.005 (0.300-4.500) uIu/ml Administered Medications Magnesium Sulfate/Dextrose (Magnesium Sulfate / D5w) 1 gm in 100 mls @ 50 mls/hr IV ONE STA Stop: 07/24/23 05:40 Last Admin: 07/24/23 04:15 Dose: 50 mls/hr Documented By: QUETA Discontinued Medications Amlodipine Besylate (Amlodipine Besylate 5 Mg Tab) 10 mg PO NOW ONE Stop: 07/23/23 23:56 Last Admin: 07/23/23 23:59 Dose: 10 mg Documented By: AN Furosemide (Furosemide 40 Mg/4 Ml Vial) 40 mg IV ONE ONE Stop: 07/24/23 01:28 Last Admin: 07/24/23 01:34 Dose: 40 mg Documented By: QUETA Labetalol HCl (Labetalol Hcl Iv 5 Mg/Ml 20ml) 10 mg IV NOW STA Stop: 07/24/23 03:04 Last Admin: 07/24/23 03:09 Dose: 10 mg Documented By: QUETA Co-signed By: AN Discharge Plan Visit Data Chief Complaint: Hypertension Stated Complaint: EDEMA TO LEGS/FEET, HIGH BP, 254/163 ED Provider: Radha Jeronimo Discharge Problem: Hypertension, Bilateral lower extremity edema, Elevated brain natriuretic peptide (BNP) level Forms Stand Alone Forms: My [facility] [employer] Prescriptions Prescriptions: No Action amlodipine 5 mg tablet 10 mg PO QAM acetaminophen [Tylenol Extra Strength] 500 mg Tablet 1,000 mg PO Q6H PRN (Reason: Pain) Referrals Referrals: Lee Moran MD [Primary Care Provider] -
[2023-07-24 00:41] LABS: Basophils # (auto) 0.05 K/uL (0.00-0.20); Basophils % (auto) 0.6 %; Eosinophils # (auto) 0.25 K/uL (0.00-0.50); Eosinophils % (auto) 2.8 %; Hematocrit (blood only) 41.6 % (42.0-52.0); Hemoglobin 13.1 g/dl (14.0-18.0); Immature Granulocytes # (auto) 0.03 K/uL (0.01-0.20); Immature Granulocytes % (auto) 0.3 %; Lymphocytes # (auto) 1.36 K/uL (1.20-3.40); Lymphocytes % (auto) 15.3 %; Mean Corpuscular Hemoglobin 27.9 pg (25.0-34.0); Mean Corpuscular Hgb Conc 31.5 g/dL (32.0-36.0); Mean Corpuscular Volume 88.5 fL (80.0-100.0); Mean Platelet Volume 11.3 fL (9.4-12.4); Monocytes # (auto) 0.58 K/uL (0.11-0.59); Monocytes % (auto) 6.5 %; Neutrophils % (auto) 74.5 %; Platelet Count 256 K/uL (130-400); RDW Coefficient of Variation 16.7 % (11.5-14.5); RDW Standard Deviation 53.5 fL (36.4-46.3); White Blood Count 8.87 K/ul (4.8-10.8)
[2023-07-24 00:54] LABS: Albumin Globulin Ratio 1.3 (0.9-2); Albumin Level 3.6 gm/dl (3.4-5.0); BUN Creatinine Ratio 14.4 (10-20); Bilirubin,Total 0.3 mg/dl (0.2-1.0); Calcium 8.2 mg/dl (8.6-10.3); Creatinine Clr Calc Pharmacy 164.8 ml/min; Est GFR (African American) 120.8 ml/min; Est GFR (Non-African American) 104.2 ml/min; Globulin 2.7 gm/dl (2.5-4.0); Magnesium 1.9 mg/dl (1.7-2.4); Total Protein 6.3 gm/dl (6.0-8.3)
[2023-07-24 01:00] LABS: Troponin I High Sensitivity 15.2 pg/ml (0-20)
[2023-07-24 01:01] LABS: Prothrombin Time 10.6 Seconds (9.0-12.0)
[2023-07-24 01:09] LABS: Thyroid Stimulating Hormone 3.005 uIu/ml (0.300-4.500)
[2023-07-24] MEDS ORDERED: FUROSEMIDE 40 MG/4 ML VIAL IV ONE ×2 (01:27→09:00)
[2023-07-24] MEDS ORDERED: LABETALOL HCL IV 5 MG/ML 20ML IV STA (03:03)
[2023-07-24] MEDS ORDERED: MAGNESIUM SULFATE / D5W 1 GM/100 ML BAG IV STA (03:41)
[2023-07-24] MEDS ORDERED: lisinopril 20 MG TAB PO STA ×2 (04:10→08:44)
[2023-07-24] MEDS ORDERED: hydrALAZINE HCL 20 MG/ML VIAL IV STA (04:11)
--- NOTE | 2023-07-24 04:12 | History & Physical Report ---
Date of Service July 24, 2023 Assessment & Plan (1) Hypertensive crisis: Plan: Largely secondary to medication noncompliance CPAP noncompliance for SUHAS, NSAID Rx for dental pain from infected carious teeth contributory Acute CHF secondary to above Leg swelling secondary to CHF Amlodipine possibly contributory Rule out DVT New onset anemia, possibly dilutional from CHF, patient denies symptoms of blood loss Hyperglycemia likely prediabetes, outpatient hemoglobin A1c of 5.8 from May 2021 ongoing tobacco abuse PCU Resume lisinopril Add Coreg in light of CHF diagnosis to regimen in place of Amlodipine given leg swelling Diuretic Rx Strict I/Os, daily weights, CHF education TTE, Cardiology consult RE hypertensive crisis, CHF Patient educated about need to comply with CPAP machine for SUHAS to achieve adequate blood pressure control. Patient needs sleep medicine follow-up on discharge. Patient counseled regarding adverse effects of NSAIDs on blood pressure. Unasyn followed by Augmentin, oromaxillofacial consult for infected dental caries LE venous Dopplers rule out DVT Anemia workup, transfuse PRBC if hemoglobin less than 7 and or for symptomatic anemia Update hemoglobin A1c DVT prophylaxis per Lovenox subcu Full code Text document was generated using [employer] voice recognition software. It may contain grammatical or spelling errors. Kindly contact undersigned for clarification of any documentation item in question. History of Present Illness Chief Complaint: High blood pressure, bilateral leg swelling Primary Care Provider: Lee Moran MD History obtained from patient and records. Medical history significant for HTN, SUHAS (CPAP noncompliance), past alcohol abuse as per records, ongoing tobacco abuse. Patient seen at [facility] ER last May 2023 for dental pain from carious teeth of months duration. Unable to get dental work due to finances. SBP noted to be 250s during ER visit. Usual blood pressure in the last 6 months as per patient Patient unable to comply with CPAP machine for SUHAS the last couple of years due to financial constraints. He ran out of lisinopril HCTZ medications few months before ER visit. Patient noted to have poor dentition with tender teeth in the lower jaw as per ER provider exam. Patient discharged on amoxicillin course and new amlodipine Rx. Persistent dental pain from carious teeth despite completing amoxicillin course. No fever, no chills, no jaw swelling, no chest pain, no SOB. Patient taking 2 tabs of [id number] ibuprofen daily for pain. Patient complied with new amlodipine Rx until he ran out a few days ago. Blood pressure not routinely checked at home. Yesterday, patient noted increased bilateral leg swelling without chest pain, SOB, headache symptoms. Denies abdominal pain, black/bloody stools, hematuria. Weight has been stable as per patient. SBP 250s upon arrival at the ER. IV labetalol and Lasix administered at the ER. Medical History as above Surgical History : None Family History : DM, heart disease, asthma Personal/Social history : Half pack daily, past alcohol use as per records, disabled Allergies Allergy/AdvReac Type Severity Reaction Status Date / Time No Known Allergies Allergy NONE Unverified 07/24/23 01:41 Home Medications Medication Instructions Recorded Confirmed Type acetaminophen 500 mg tablet 1,000 mg PO Q6H PRN Pain 07/24/23 07/24/23 History (Tylenol Extra Strength) amlodipine 5 mg tablet 10 mg PO QAM 07/24/23 07/24/23 History Past Med/Surg History Medical History Asthma Left rib fracture Social History Smoking Status: Current every day smoker Tobacco Type: Cigarettes Second Hand Exposure: No; Do You Dip or Chew Tobacco: No; Tobacco Cessation Education Requested by Patient: No Hx Alcohol Use: No Hx Substance Use: No Preferred Language: Burkinan Communication Ability: Effective Purchasing Intern Required: No Beliefs That Will Affect Care: None Current Living Situation: Other Current Living Situation Comment: life partner and kids Other Information That Helps Us Care for You: No Feels Safe at Home: Yes Safety Concerns: Feels Safe At This Time Assistive Devices: None Review of Systems Review of Systems: As per HPI, all other systems reviewed and negative Physical Exam Physical Exam: GENERAL: Comfortable, morbidly obese, looks older than stated age, no respiratory distress SKIN: Normal color, warm HEENT: [place] palpebral conjunctivae, no ptosis, moist buccal mucosa, partially edentulous, no trismus, carious posterior molars NECK : Supple, short neck, no tenderness CHEST : CTA, no tenderness HEART : RRR, no obvious murmurs ABDOMEN: Some distention, nontender RECTAL exam: Refused EXTREMITIES : Bilateral LE swelling, no LE tenderness, no other conspicuous deformities noted NEUROLOGIC : Coherent, no facial asymmetry, no other gross focality Results & Data Results & Data Vital Signs (Past 12 Hours) Vital Signs Temp Pulse Pulse Resp BP BP Pulse Ox 07/24/23 04:07 80 17 253/166 H 93 07/24/23 03:25 78 226/154 H 07/24/23 03:10 74 17 228/165 H 94 07/24/23 03:09 81 228/165 H 07/24/23 01:30 78 17 219/156 H 95 07/24/23 01:30 72 15 197/158 H 95 07/24/23 00:38 79 15 220/153 H 94 07/24/23 00:17 79 07/23/23 23:34 36.5 C 87 22 254/149 H 91 O2 Del Method 07/24/23 04:07 Room Air 07/24/23 03:25 07/24/23 03:10 Room Air 07/24/23 03:09 07/24/23 01:30 Room Air 07/24/23 01:30 Room Air 07/24/23 00:38 Room Air 07/24/23 00:17 07/23/23 23:34 Room Air Laboratory Results Laboratory Results WBC 8.87 K/ul (4.8-10.8) 07/24/23 00:20 RBC 4.70 M/uL (4.70-6.10) 07/24/23 00:20 Hgb 13.1 g/dl (14.0-18.0) L 07/24/23 00:20 Hct 41.6 % (42.0-52.0) L 07/24/23 00:20 MCV 88.5 fL (80.0-100.0) 07/24/23 00:20 MCH 27.9 pg (25.0-34.0) 07/24/23 00:20 MCHC 31.5 g/dL (32.0-36.0) L 07/24/23 00:20 RDW Std Deviation 53.5 fL (36.4-46.3) H 07/24/23 00:20 RDW Coeff of Tran 16.7 % (11.5-14.5) H 07/24/23 00:20 Plt Count 256 K/uL (130-400) 07/24/23 00:20 MPV 11.3 fL (9.4-12.4) 07/24/23 00:20 Immature Gran % (Auto) 0.3 % 07/24/23 00:20 Neut % (Auto) 74.5 % 07/24/23 00:20 Lymph % (Auto) 15.3 % 07/24/23 00:20 [place] % (Auto) 6.5 % 07/24/23 00:20 Eos % (Auto) 2.8 % 07/24/23 00:20 Baso % (Auto) 0.6 % 07/24/23 00:20 Neut # (Auto) 6.60 K/uL (1.40-6.50) H 07/24/23 00:20 Lymph # (Auto) 1.36 K/uL (1.20-3.40) 07/24/23 00:20 [place] # (Auto) 0.58 K/uL (0.11-0.59) 07/24/23 00:20 Eos # (Auto) 0.25 K/uL (0.00-0.50) 07/24/23 00:20 Baso # (Auto) 0.05 K/uL (0.00-0.20) 07/24/23 00:20 Immature Gran # (Auto) 0.03 K/uL (0.01-0.20) 07/24/23 00:20 PT 10.6 Seconds (9.0-12.0) 07/24/23 00:20 INR 1.0 (0.9-1.1) 07/24/23 00:20 Sodium 139 mmol/L (136-145) 07/24/23 00:20 Potassium 4.0 mmol/L (3.5-5.1) 07/24/23 00:20 Chloride 104 mmol/L (98-107) 07/24/23 00:20 Carbon Dioxide 31 mmol/L (21-32) 07/24/23 00:20 Anion Gap 4 (3-11) 07/24/23 00:20 BUN 13 mg/dl (6-23) 07/24/23 00:20 Creatinine 0.90 mg/dl (0.6-1.4) 07/24/23 00:20 Est Cr Clr Drug Dosing 164.8 ml/min 07/24/23 00:20 Est GFR ( Amer) 120.8 ml/min 12 00:20 Est GFR (Non-Af Amer) 104.2 ml/min 07/24/23 00:20 BUN/Creatinine Ratio 14.4 (10-20) 07/24/23 00:20 Glucose 122 mg/dl (70-99(Fasting)) H 07/24/23 00:20 Calcium 8.2 mg/dl (8.6-10.3) L 07/24/23 00:20 Magnesium 1.9 mg/dl (1.7-2.4) 07/24/23 00:20 Total Bilirubin 0.3 mg/dl (0.2-1.0) 07/24/23 00:20 AST 15 U/L (13-39) 07/24/23 00:20 ALT 13 U/L (7-52) 07/24/23 00:20 Alkaline Phosphatase 62 U/L (34-104) 07/24/23 00:20 Troponin I High Sens 15.2 pg/ml (0-20) 07/24/23 00:20 B-Natriuretic Peptide 286 pg/ml (0-100) H 07/24/23 00:20 Total Protein 6.3 gm/dl (6.0-8.3) 07/24/23 00:20 Albumin 3.6 gm/dl (3.4-5.0) 07/24/23 00:20 Globulin 2.7 gm/dl (2.5-4.0) 07/24/23 00:20 Albumin/Globulin Ratio 1.3 (0.9-2) 07/24/23 00:20 Lipase 16 U/L (11-82) 07/24/23 00:20 TSH 3.005 uIu/ml (0.300-4.500) 07/24/23 00:20 Diagnostic Findings Chest x-ray as per my interpretation cardiomegaly, atelectasis, possible pleural effusion left EKG as per my interpretation : Rate 80, NSR, LAD, LAFB, T wave abnormalities lateral leads
[2023-07-24] MEDS ORDERED: MoRPHine SULFATE 4 MG/ML 1 ML CARP\\VIAL IV PRN (04:18)
[2023-07-24] MEDS ORDERED: PROMETHAZINE HCL 12.5 MG in SODIUM CHLORIDE 0.9% 50 ML IV PRN (04:18)
[2023-07-24] MEDS ORDERED: oxyCODONE HCL IR 5 MG TAB (IMMEDIATE RELEASE) PO PRN (04:18)
[2023-07-24] MEDS ORDERED: AMPICILLIN/SULBACTAM SOD 3,000 MG in SODIUM CHLOR 0.9% MINI-B 100 ML IV STA (04:18)
[2023-07-24] MEDS ORDERED: ACETAMINOPHEN 325 MG TAB PO PRN ×2 (04:19→05:29)
[2023-07-24] MEDS ORDERED: carvediloL 3.125 MG TAB PO SCH (05:55)
[2023-07-24 06:34] LABS: Appearance Urine Clear (Clear); Bacteria Urine Automated Negative (Negative); Bilirubin Urine Negative (Negative); Blood Urine Negative (Negative); Cast Urine Automated 0 /lpf (0-5); Color Urine Yellow; Epithelial Cell Urine Auto 0-5 /lpf (0-5); Glucose Urine UA Negative (Negative); Ketones Urine Negative (Negative); Leukocyte Esterase Urine Negative (Negative); Nitrite Urine Negative (Negative); RBC Urine Automated 0-4 /hpf (0-4); Specific Gravity Urine 1.011 (1.000-1.030); Urobilinogen Urine Negative (Negative); WBC Urine Automated 0 /hpf (0-5); pH Urine 7.5 (4.5-7.5)
[2023-07-24 06:37] LABS: Protein Urine 2+ (Negative)
--- NOTE | 2023-07-24 06:55 | XRay Report ---
XR chest 1V portable CLINICAL HISTORY: Hypertension. COMPARISON STUDY: Chest CT December 10, 2015. Chest radiograph October 30, 2021. FINDINGS: Exam is compromised by suboptimal penetration. Lung volumes are normal. No pneumothorax or pleural effusion is present. There is mild enlargement of the cardiac silhouette. No evidence for ove rt pulmonary edema. Prominence of the vasculature is likely within normal limits. IMPRESSION: No acute cardiopulmonary findings. No significant change in appearance of the chest. Exa m compromised by suboptimal penetration. ACT 112: Negative or not required by law. Electronically signed by: Maury Ortiz M.D. 07/24/2023 6:54 AM
[2023-07-24 07:04] LABS: Amphetamines+Metham, Urine Neg (Neg); Barbiturates, Urine Neg (Neg); Benzodiazepine, Urine Neg (Neg); Cocaine, Urine Neg (Neg); MDMA (Ecstacy), Urine Neg (Neg); Marijuana, Urine Pos (Neg); Methadone, Urine Neg (Neg); Opiate, Urine Neg (Neg); Phencyclidine, Urine Neg (Neg)
--- NOTE | 2023-07-24 07:40 | Cardiology Consultation ---
Date of Consultation July 24, 2023 Assessment & Plan (1) Hypertensive crisis: (2) Bilateral lower extremity edema: (3) SUHAS on CPAP: Plan IMPRESSION: 43-year-old male who presented to [facility] emergency department with new onset lower extremity edema and found to be markedly hypertensive with systolic blood pressures averaging in the 250s. Patient has been noncompliant with medications. He also has known obstructive sleep apnea but has been noncompliant with CPAP. PLAN: Hypertension: BP elevated likely in the setting of noncompliance with medication regimen. Thankfully renal function is stable, but urinalysis did show proteinuria. Agree with restarting lisinopril-- will increase to 40 mg daily Agree with starting carvedilol 3.125 mg twice daily, room to titrate pending clinical response. Amlodipine on hold due to lower extremity edema. Future considerations of restarting spironolactone (seen by nephrology 09/2020 where this medication was started, unknown reason for dc)--given degree of hypertension patient will likely require at least 3 agents to control blood pressure. Echocardiogram pending--likely a degree of diastolic dysfunction vs right heart failure due to uncontrolled hypertension/Pickwickian physiology. Will assess LV systolic function and valvular status with imaging. Volume status appears improved, received a total of 40 mg of IV Lasix x 2-- May require daily diuretic therapy. Encourage compliance with CPAP. Case discussed with Dr. Horne. Will follow. I spent a total of 45 minutes on the date of service in preparation, delivery, and documentation of the care provided to the patient excluding any time spent in the performance of separately billed services. Supervising Physician Co-Signing Physician Notes Cardiology Attending: Case discussed with LUCAS Hernandez. Agree with findings and plan as outlined above. Attempted to see patient at 10:58 am , however, he had already left the emergency department against medical advice. Zee Horne DO History of Present Illness Reason for Consultation: Hypertensive crisis/CHF Requesting Physician: Ana [facility] Attending Physician: Awilda Levi MD History of Present Illness 43-year-old male with past medical history of hypertension presented to [facility] due to new onset lower extremity edema x 24-48 hrs. Blood pressure was markedly elevated with a systolic in the 250s--has not been able to take any of his medications since last due to switching of pharmacies. Renal function was stable. Protein seen in urinalysis. High-sensitivity troponin negative. BNP minimally elevated at 286 EKG showing normal sinus rhythm, 81 bpm with T wave abnormality in lateral leads. But appears very similar to EKG dated 10/2021. Chest x-ray unremarkable Lower extremity duplex ordered, pending. Previous visit to [facility] emergency department 05/2023 for dental pain and blood pressures were elevated similarly at this time. Amlodipine was added. Patient normally maintains on lisinoprilhydrochlorothiazide 20-12.5 mg daily, and amlodipine 10 mg daily--has been having financial difficulty and has been out of his medications. Hx of hypertension dating back to roughly 2019-- was evaluated by nephrology 09/2020. Renal US was generally unremarkable. He was started on spironolactone at that time, but at some point this medication was discontinued (~11/2021) for unknown reasons. In the emergency department lisinopril was restarted and amlodipine held. Carvedilol 3.125 mg twice daily was started in its place. Patient was also given a one-time dose of 10 mg of IV labetalol as well as 10 mg of IV hydralazine. IV furosemide 40 mg x 1 was given in the emergency department--will be receiving an additional 40 mg this morning. I&O: -100 mL Weight: 169.2 kg Tele: Sinus rhythm 70s to 80s. Upon entrance into the room patient resting in bed. No acute concerns. Denies chest pain or shortness of breath. Notes improvement in his lower extremity edema--however swelling remains. Denies orthopnea but notes that he is unable to lay flat due to not being able to get comfortable. This has been ongoing for many years. Has known obstructive sleep apnea but noncompliant with CPAP. Denies palpitations or lightheadedness. Denies fever or chills. No unusual bleeding. Notes dental pain. Patient does not work, on disability. . Has 2 children aged 6 and 17. Tobacco user, smokes 1/2-1 ppd. Social alcohol use, denies daily use. Denies illicit drug use however tox screen positive for marijuana. Past medical history: Hypertension SUHAS, noncompliant with CPAP Tobacco use Medication noncompliance Allergies Allergy/AdvReac Type Severity Reaction Status Date / Time No Known Allergies Allergy NONE Unverified 07/24/23 01:41 Home Medications Medication Instructions Recorded Confirmed Type acetaminophen 500 mg tablet 1,000 mg PO Q6H PRN Pain 07/24/23 07/24/23 History (Tylenol Extra Strength) amlodipine 5 mg tablet 10 mg PO QAM 07/24/23 07/24/23 History Patient History Medical History Asthma Left rib fracture Social History Smoking Status: Current every day smoker Tobacco Type: Cigarettes Second Hand Exposure: No; Do You Dip or Chew Tobacco: No; Tobacco Cessation Education Requested by Patient: No Hx Alcohol Use: No Hx Substance Use: No Preferred Language: Indonesian Communication Ability: Effective Blunger Required: No Beliefs That Will Affect Care: None Current Living Situation: Other Current Living Situation Comment: life partner and kids Other Information That Helps Us Care for You: No Feels Safe at Home: Yes Safety Concerns: Feels Safe At This Time Assistive Devices: None Review of Systems Review of Systems: All systems reviewed & are unremarkable except as noted in HPI & below Physical Exam Constitutional: WD/WN, vitals as above + obese; no acute distress ENMT: Mouth: + poor dentition Neck: normal visual inspection and trachea midline Respiratory: normal respiratory effort; no labored breathing and no cough Auscultation: + wheezes; no rales and no rhonchi Cardiovascular: Rate/Rhythm: regular rate and regular rhythm Heart Sounds: normal S1 and normal S2; no murmur (distant heart sounds ) Vessels: + JVD (unable to assess due to body habitis ) Extremities: + edema (+1-+2 BLLE pitting edema L>R) Gastrointestinal (Abdomen): normal bowel sounds, soft, nontender, no hepatosplenomegaly Skin: BL venous insufficiency noted/shiny dunn area. Psychiatric: Orientation: alert and oriented x 3 Results & Data Vital Signs (Past 12 Hours) Vital Signs Temp Pulse Pulse Resp BP BP Pulse Ox 07/24/23 07:08 79 07/24/23 06:31 79 18 216/143 H 94 07/24/23 06:13 78 20 213/141 H 92 07/24/23 05:36 76 20 237/149 H 94 07/24/23 05:36 07/24/23 05:01 80 20 234/137 H 93 07/24/23 04:49 81 20 235/166 H 94 07/24/23 04:17 76 07/24/23 04:07 80 17 253/166 H 93 07/24/23 03:25 78 226/154 H 07/24/23 03:10 74 17 228/165 H 94 07/24/23 03:09 81 228/165 H 07/24/23 01:30 78 17 219/156 H 95 07/24/23 01:30 72 15 197/158 H 95 07/24/23 00:38 79 15 220/153 H 94 07/24/23 00:17 79 07/23/23 23:34 36.5 C 87 22 254/149 H 91 Pulse Ox O2 Del Method O2 Del Method 07/24/23 07:08 07/24/23 06:31 07/24/23 06:13 07/24/23 05:36 07/24/23 05:36 94 Room Air 07/24/23 05:01 07/24/23 04:49 07/24/23 04:17 07/24/23 04:07 Room Air 07/24/23 03:25 07/24/23 03:10 Room Air 07/24/23 03:09 07/24/23 01:30 Room Air 07/24/23 01:30 Room Air 07/24/23 00:38 Room Air 07/24/23 00:17 07/23/23 23:34 Room Air Laboratory Results Cardiac Enzymes 07/24/23 Range/Units 00:20 AST 15 (13-39) U/L Troponin I High Sens 15.2 (0-20) pg/ml B-Natriuretic Peptide 286 H (0-100) pg/ml Coagulation 07/24/23 Range/Units 00:20 PT 10.6 (9.0-12.0) Seconds B-Natriuretic Peptide 286 H (0-100) pg/ml CBC 07/24/23 Range/Units 00:20 WBC 8.87 (4.8-10.8) K/ul RBC 4.70 (4.70-6.10) M/uL Hgb 13.1 L (14.0-18.0) g/dl Hct 41.6 L (42.0-52.0) % Plt Count 256 (130-400) K/uL Neut # (Auto) 6.60 H (1.40-6.50) K/uL Lymph # (Auto) 1.36 (1.20-3.40) K/uL [facility] # (Auto) 0.58 (0.11-0.59) K/uL Eos # (Auto) 0.25 (0.00-0.50) K/uL Baso # (Auto) 0.05 (0.00-0.20) K/uL Comprehensive Metabolic Panel 07/24/23 Range/Units 00:20 Sodium 139 (136-145) mmol/L Potassium 4.0 (3.5-5.1) mmol/L Chloride 104 (98-107) mmol/L Carbon Dioxide 31 (21-32) mmol/L BUN 13 (6-23) mg/dl Creatinine 0.90 (0.6-1.4) mg/dl Glucose 122 H (70-99(Fasting)) mg/dl Calcium 8.2 L (8.6-10.3) mg/dl AST 15 (13-39) U/L ALT 13 (7-52) U/L Alkaline Phosphatase 62 (34-104) U/L Total Protein 6.3 (6.0-8.3) gm/dl Albumin 3.6 (3.4-5.0) gm/dl Intake and Output 07/23/23 07/24/23 07/24/23 22:59 06:59 14:59 Intake Total 200 / 200 Output Total 300 / 300 Balance -100 / -100 Intake: IV 200 / 200 Ampicillin/Sulbactam Sod 3,000 100 / 100 mg In Sodium Chlor 0.9% Mini-B 100 ml @ 200 mls/hr IV NOW STA Rx#:[id number] Magnesium Sulfate / D5w 1 gm In 100 / 100 100 ml @ 50 mls/hr IV ONE STA Rx#:[id number] Output: Urine 300 / 300 Other: Weight 169.2 kg Weight Measurement Method Chair Scale
[2023-07-24 07:41] LABS: Estimated Average Glucose 128 mg/dl; Hemoglobin A1C 6.1 % (4.5-5.6)
[2023-07-24] MEDS ORDERED: INFLUENZA VIRUS QUADRIVALENT VACCINE (IIV4) 0.5 ML SYR IM ONE (08:23)
[2023-07-24 08:52] LABS: Chol HDL Ratio 5.4 (0-5)
[2023-07-24] MEDS ORDERED: ENOXAPARIN INJ 40 MG/0.4 ML SYR SQ SCH (09:00)
--- NOTE | 2023-07-24 10:04 | Ultrasound Report ---
BILATERAL LOWER EXTREMITY VENOUS DOPPLER HISTORY: Bilateral leg swelling COMPARISON STUDY: None. FINDINGS: There is normal compressibility, flow, and augmentation within the bilateral lower extremit y deep venous systems. IMPRESSION: No DVT within the right or left lower extremity. ACT 112: Negative or not required by law. Electronically signed by: Levon Sinclair M.D. 07/24/2023 10:03 AM
--- NOTE | 2023-07-24 11:24 | Discharge Summary ---
Date of Service July 24, 2023 Admission HPI Per Admitting Provider History obtained from patient and records. Medical history significant for HTN, SUHAS (CPAP noncompliance), past alcohol abuse as per records, ongoing tobacco abuse. Patient seen at [facility] ER last May 2023 for dental pain from carious teeth of months duration. Unable to get dental work due to finances. SBP noted to be 250s during ER visit. Usual blood pressure in the last 6 months as per patient Patient unable to comply with CPAP machine for SUHAS the last couple of years due to financial constraints. He ran out of lisinopril HCTZ medications few months before ER visit. Patient noted to have poor dentition with tender teeth in the lower jaw as per ER provider exam. Patient discharged on amoxicillin course and new amlodipine Rx. Persistent dental pain from carious teeth despite completing amoxicillin course. No fever, no chills, no jaw swelling, no chest pain, no SOB. Patient taking 2 tabs of snde-src-tpoedbi ibuprofen daily for pain. Patient complied with new amlodipine Rx until he ran out a few days ago. Blood pressure not routinely checked at home. Yesterday, patient noted increased bilateral leg swelling without chest pain, SOB, headache symptoms. Denies abdominal pain, black/bloody stools, hematuria. Weight has been stable as per patient. SBP 250s upon arrival at the ER. IV labetalol and Lasix administered at the ER. Medical History as above Surgical History : None Family History : DM, heart disease, asthma Personal/Social history : Half pack daily, past alcohol use as per records, disabled Admission Exam Per Admitting Provider GENERAL: Comfortable, morbidly obese, looks older than stated age, no respiratory distress SKIN: Normal color, warm HEENT: [place] palpebral conjunctivae, no ptosis, moist buccal mucosa, partially edentulous, no trismus, carious posterior molars NECK : Supple, short neck, no tenderness CHEST : CTA, no tenderness HEART : RRR, no obvious murmurs ABDOMEN: Some distention, nontender RECTAL exam: Refused EXTREMITIES : Bilateral LE swelling, no LE tenderness, no other conspicuous deformities noted NEUROLOGIC : Coherent, no facial asymmetry, no other gross focality Principal Diagnosis Hypertensive crisis Acute CHF Dental caries Discharge Exam GENERAL: Alert and oriented x3. Upset/irritated mood, on RA. Angry at bedside exam. Morbidly obese. HEENT: No pallor, no icterus. Pupils equal, round and reactive to light. Oral mucosa moist. NECK: No JVD, no neck masses. HEART: S1 and S2 heard. Regular rate and rhythm. No murmur, no gallop. RESPIRATORY SYSTEM: Normal AP diameter. No accessory muscle use. No wheezing, no crackles. ABDOMEN: Soft, bowel sounds present, nontender, no distention. CENTRAL NERVOUS SYSTEM: No facial droop. Speech is clear. Obeys simple commands. Moves extremities. EXTREMITIES: 1-2+ BLE edema, no erythema seen. Discharge Data Allergies Allergy/AdvReac Type Severity Reaction Status Date / Time No Known Allergies Allergy NONE Unverified 07/24/23 01:41 Consultations 07/24/23 04:18 Consult Oromaxillofacial Surgery Routine 07/24/23 05:29 Consult Cardiology Routine Ordered Studies 07/24/23 05:39 US venous doppler [facility] Course (1) Hypertensive crisis: Patient was seen and examined at bedside. Patient was being managed for hypertensive crisis likely secondary to medication noncompliance and lack of follow-up with PCP as an outpatient per patient. Patient also has CPAP noncompliance for SUHAS. Patient also taking NSAIDs for his dental pain which he has been advised to avoid due to adverse effect on his heart failure and hypertension. Patient's blood pressure medications were being optimized and he was started on Augmentin with a plan to be further evaluated by cardiology and oral maxillofacial surgeon. Upon entering the room for bedside exam, patient noted to be upset and angry and already asking to leave [facility]. He did not want to converse from the beginning, he ripped his SpO2 monitor as a show of anger. He was noted to be about to rip his monitoring tech. But he did not. Patient was explained in detail the need to gradually lower his blood pressure and cannot lower the blood pressure at once and might need 24 to 48 hours before we optimize his blood pressure medication and slowly bring down his blood pressure. Patient was also explained the need to continue his antibiotic and be evaluated by OMFS. Patient made aware that if he decides to leave, he might end up getting uncontrolled blood pressure leading to heart attack or stroke leading to . He voiced understanding. He did not want to hear anything more, many times interrupted me while trying to inform his current health situation. He decided to leave [facility] after all the discussion. RN at bedside. Home Health Attestation I certify that this patient is under my care and that I, or a physicians wet process miller head assistant working with me, had a face to-face encounter that meets the home health [id number] encounter requirements with this patient. The encounter with the patient was in whole, or in part, for the following me dical condition, which is the primary reason for home health care (list medical condition): I certify that, based on my findings, the following services are medically neces ifrah home health services: My clinical findings support the need for the above services because: Further, I certify that my clinical findings support that this patient is homebound (i.e. absences from home require considerable and taxing effort and are for medical reasons or scientologist services or infrequently or of short duration when for other reasons) because: Certification for Home Health Services: Based on the above findings, I certify that this patient is confined to the home and needs intermittent alf care, physical therapy and/or speech therapy or continues to need occupational therapy. The patient is under my care, and I have initiated the establishment of the plan of care. This patient will be followed by a physician who will periodically review the plan of care. Total Time Total Time Spent Total Time Spent (In Minutes): 45 Discharge Plan Discharge Items Patient Disposition: Against Medical Advice Reason For Visit: HTN CRISIS, CHF Activity: Per Instructions section Non-emergency contact: Primary Care Provider Follow-up/Referrals: Lee Moran MD [Primary Care Provider] - Pending Studies at Discharge: No Stand-Alone Forms: My [facility] Flexenclosure, Smoking Cessation Medications and DC Order Prescriptions: No Action amlodipine 5 mg tablet 10 mg PO QAM acetaminophen [Tylenol Extra Strength] 500 mg Tablet 1,000 mg PO Q6H PRN (Reason: Pain) Discharge Orders: Left Against Medical Advice (Routine); Ordered 07/24/23 Ordered By: Awilda Stephens/Other Patient Handouts: Prediabetes, 5 Steps for Eating Healthier Admission Data Admit Date/Time: 07/24/23 04:13 Attending Provider: Awilda Levi Admit Provider: Dangelo Lopez Primary Care Provider: Lee Moran Other Providers: Aris Michaels; Tasia Alves; Jai Horne; Renzo Lopez; Saad Rees; Haroon Fair.; Malcolm Miller; Kiara Huddleston; Yessenia Marroquin; Tasia Muñoz.; Chuck Rothman.; Shen Cruz; Deepika Suarez; Joyce Simmons; Shelia Lynn; Rolando Johnston
[2023-07-24] MEDS ORDERED: AMOXICILLIN/CLAVULANATE 875 MG TAB PO SCH (17:00)
[2023-07-25] MEDS ORDERED: lisinopril 20 MG TAB PO SCH (09:00)
[2023-07-25] MEDS ORDERED: lisinopril 40 MG TAB PO SCH (09:00)
--- NOTE | 2023-07-25 22:57 | Electrocardiogram Report ---
Test Reason : Blood Pressure : / mmHG Vent. Rate : 081 BPM Atrial Rate : 081 BPM P-R Int : 144 ms QRS Dur : 086 ms QT Int : 422 ms P-R-T Axes : 003 005 113 degrees QTc Int : 490 ms Normal sinus rhythm T wave abnormality, consider lateral ischemia Abnormal ECG When compared with ECG of 30-OCT-2021 21:21, T wave inversion more evident in Lateral leads Confirmed by Angel Mccord ([id number]) on 07/25/2023 10:56:36 PM Referred By: REFERRED SELF Confirmed By:Angel Mccord
[2023-07-26 07:17] LABS: Marijuana Quant, GCMS Urine 163 ng/mL (<5)
== END 2023-07-24 10:25 | disposition left against medical advice (07) ==
LOC: ED 23:30 → INTOOBSV 07-24 04:13 → EDINP 07-24 04:13